=== PATIENT | male | born 1955 | race Caucasian/White ===

== ENCOUNTER 2018-02-17 11:15 | Day surgery (SDC) | payer OTHER ==
[~2018-02-17 11:15] MED LIST: EPHEDrine SULFATE 50 MG/5 ML SYG
[2018-02-17] MEDS ORDERED: SOD CHLORIDE 0.9% 1,000 ML IV (14:00)
[2018-02-17] MEDS ORDERED: CEFAZOLIN 2 GM/50 ML (PMX) 50 ML IVPB (14:00)
[2018-02-17] MEDS ORDERED: ROCURONIUM 50 MG INJ (14:37)
[2018-02-17] MEDS ORDERED: PROPOFOL 20 ML (14:37)
[2018-02-17] MEDS ORDERED: MIDAZOLAM 1 MG/ML 2 ML INJ (14:42)
[2018-02-17] MEDS ORDERED: ROPIVACAINE 0.5 % 30 ML VIAL (14:42)
[2018-02-17] MEDS ORDERED: MEPERIDINE 25 MG INJ IV (15:00)
[2018-02-17] MEDS ORDERED: EPHEDrine SULFATE 50 MG/5 ML SYG IV (15:00)
[2018-02-17] MEDS ORDERED: DIPHENHYDRAMINE 50 MG INJ IV (15:00)
[2018-02-17] MEDS ORDERED: LABETALOL HCL 20MG INJ IV (15:00)
[2018-02-17] MEDS ORDERED: HYDROmorphONE 1 MG/5 ML IV SYRINGE IV ×3 (15:00)
[2018-02-17] MEDS ORDERED: FENTAnyl 50 MCG/ML VIAL IV ×3 (15:00)
[2018-02-17] MEDS ORDERED: ONDANSETRON 4 MG INJ IV ×2 (15:00→17:30)
[2018-02-17] MEDS ORDERED: METOCLOPRAMIDE 10 MG INJ IV (15:00)
[2018-02-17] MEDS ORDERED: OXYCODONE/ACETAMINOPHEN (5/325) TAB PO ×2 (15:00)
[2018-02-17] MEDS ORDERED: POLYMYXIN/BACITRACIN 1L IRRIG (15:37)
[2018-02-17] MEDS: POLYMYXIN/BACITRACIN 1L IRRIG (16:09)
[2018-02-17] MEDS: BUPIVACAINE 0.25% (MPF) 30 ML INJ (16:09)
[2018-02-17] MEDS ORDERED: CEFAZOLIN 1 GM INJ (16:21)
[2018-02-17] MEDS ORDERED: SUGAMMADEX SODIUM 200 MG/2 ML VIAL IV (16:21)
[2018-02-17] MEDS ORDERED: ONDANSETRON 4 MG INJ (16:21)
[2018-02-17] MEDS ORDERED: DEXAMETHASONE 4 MG/ML 1 ML INJ (16:21)
[2018-02-17] MEDS ORDERED: KETOROLAC 30 MG INJ (16:21)
[2018-02-17] MEDS ORDERED: METOCLOPRAMIDE 10 MG INJ (16:21)
[2018-02-17] MEDS ORDERED: KETOROLAC 30 MG INJ IV (17:30)
[2018-02-17] MEDS ORDERED: IBUPROFEN 600 MG TAB PO (17:30)
[2018-02-17] MEDS ORDERED: morphine 2 MG INJ IV (17:30)
[2018-02-17] MEDS ORDERED: HYDROCODONE/APAP (5/325) TAB PO ×2 (17:30)
== END 2018-02-17 19:58 | disposition home or self-care (01) ==
LOC: SDS 11:15
DX: K40.90 Unilateral inguinal hernia, without obstruction or gangrene, not specified as recurrent (principal); E11.9 Type 2 diabetes mellitus without complications; I10 Essential (primary) hypertension; E78.5 Hyperlipidemia, unspecified; F17.200 Nicotine dependence, unspecified, uncomplicated
CPT/HCPCS: 49505; 82962